=== PATIENT | female | born 1945 | race Caucasian/White ===

== ENCOUNTER → 2016-08-27 | Outpatient (CLI) | payer MEDICARE, OTHER ==
[~2016-08-27] MED LIST: CYCL5TAB PO; IBUP600T26 PO; Z.0.NO CURRENT MEDS
[2016-08-27 13:20] LABS: BASOPHIL % 0.5 % (0.0-2.0); EOSINOPHIL % 0.9 % (0.0-4.0); HEMATOCRIT 37.9 % (35.0-46.0); HEMO FLAGS DIFF FINAL; LYMPH % 25.5 % (9.0-44.0); LYMPHOCYTE # 1.2 TH/MM3 (1.0-4.8); MEAN CELL VOLUME 95.1 FL (80.0-100.0); MEAN CORPUSCULAR HEMOGLOBIN 32.9 PG (27.0-34.0); MEAN CORPUSCULAR HGB CONC 34.6 % (32.0-36.0); MONO % 7.8 % (0.0-8.0); NEUT % 65.3 % (16.0-70.0); PLATELET COUNT 206 TH/MM3 (150-450); RED BLOOD COUNT 3.98 MIL/MM3 (4.00-5.30); RED CELL DISTRIBUTION WIDTH 12.8 % (11.6-17.2); WHITE BLOOD COUNT 4.7 TH/MM3 (4.0-11.0)
[2016-08-27 13:52] LABS: ALKALINE PHOSPHATASE 40 U/L (45-117); ALT (GPT) 24 U/L (10-53); ANION GAP 7 MEQ/L (5-15); AST (GOT) 15 U/L (15-37); BLOOD UREA NITROGEN 12 MG/DL (7-18); CHLORIDE 107 MEQ/L (98-107); GLOMERULAR FILTRATION RATE 87 ML/MIN (>89); POTASSIUM 3.8 MEQ/L (3.5-5.1); SODIUM (NA) 141 MEQ/L (136-145); TOTAL BILIRUBIN ADULT 0.5 MG/DL (0.2-1.0)
[2016-08-27 16:43] LABS: BLOOD, URINE MOD (NEG); GLUCOSE,URINE NEG (NEG); KETONE, URINE NEG (NEG); NITRITE,URINE NEG (NEG); SQUAMOUS EPITHELIAL CELL URINE 2 /hpf (0-5); URINE COLOR YELLOW (YELLW/STRAW)
== END ==
LOC: PLAB 11:12
PROVIDERS: ATTEND Family Medicine
DX: R31.29 Other microscopic hematuria (principal); C50.919 Malignant neoplasm of unspecified site of unspecified female breast; R53.83 Other fatigue
CPT/HCPCS: 36415; 80053; 81001; 84443; 85025

== ENCOUNTER 2017-05-19 15:52 | Emergency (ER) | payer MEDICARE, OTHER ==
[~2017-05-19] VITALS: Ht 172.7 cm; Wt 77.0 kg
[2017-05-19 16:01] VITALS: BP 158/72; PULSE 71; RESP 16; TEMP 97.2; O2SAT 98
[2017-05-19 16:20] VITALS: O2SAT 97
[2017-05-19] MEDS ORDERED: MECLIZINE HCL 25 MG TAB PO ONE (16:30)
[2017-05-19] MEDS ORDERED: SODIUM CHLOR 0.9% 1000 ML INJ 1,000 ML IV ONE (16:30)
[2017-05-19] MEDS ORDERED: SODIUM CHLORIDE 0.9% FLUSH 10 ML FLUSH IVF PRN (16:30)
[2017-05-19] MEDS ORDERED: LORazepam 2 MG/ML VIAL IV PUSH ONE (16:30)
--- NOTE | 2017-05-19 16:47 | PD ---
HPI Chief Complaint: Dizziness Time Seen by Provider: 16:10 Travel History International Travel<30 days: No Contact w/Intl Traveler<30days: No Traveled to known affect area: No History of Present Illness HPI Patient is a 72-year-old female who presents to emergency room for evaluation of dizziness. Patient reports that around 2:00PM this afternoon, she went to her friends home down the street and began to feel dizzy. Patient reports that she felt as if she was spinning around the room. Reports that she felt diaphoretic, nauseous and faint with her symptoms. Patient reports that she had to have her friend assist her back to her home she was unsteady on her feet. Patient reports that the dizziness is worse with exertion, reports that dizziness does improve when she is laying down. Patient denies any fall or trauma to the head or neck. Patient denies any chest pain or shortness of breath. Patient denies any abdominal pain. Patient reports that something similar this happen a few years ago, reports that she was on medication but reported that the symptoms lasted for a few days. Patient reports that she does not have any medical problems at this time, reports only history of breast cancer currently taking tamoxifen [facility] Past Medical History Cancer: Yes (history of breast cancer) Menopausal: Yes Past Surgical History Surgical History: No Previous Surgery Social History Alcohol Use: Yes (1-2/DAY) Tobacco Use: No Substance Use: No Allergies-Medications (Allergen,Severity, Reaction): Coded Allergies: No Known Allergies (Verified Adverse Reaction, Unknown, 05/19/17) Reported Meds & Prescriptions Reported Meds & Active Scripts Active Meclizine (Meclizine HCl) 25 Mg Tab 25 Mg PO TID PRN Reported Cranberry Urinary Comfort (Vitamins C & E) 1 Cap 1 Cap PO DAILY Tamoxifen (Tamoxifen Citrate) 10 Mg Tab 10 Mg PO DAILY Review of Systems General / Constitutional: No: Fever Eyes: No: Visual changes HENT: Positive: Lightheadedness, No: Headaches Cardiovascular: No: Chest Pain or Discomfort Respiratory: No: Shortness of Breath Gastrointestinal: Positive: Nausea, Vomiting, No: Abdominal Pain Genitourinary: No: Dysuria Musculoskeletal: No: Pain Skin: No Rash Neurologic: Positive: Weakness, Dizziness, Ataxia, No: Syncope, Focal Abnormalities, Coordination Problem, Headache, Slurred Speech, Seizures, Sensory Disturbance Psychiatric: No: Depression Endocrine: No: Polydipsia Hematologic/Lymphatic: No: Easy Bruising Physical Exam Narrative GENERAL: Moderate distress SKIN: Focused skin assessment warm/dry. HEAD: Atraumatic. Normocephalic. EYES: Pupils equal and round. No scleral icterus. No injection or drainage. Patient with horizontal nystagmus ENT: No nasal bleeding or discharge. Mucous membranes pink and moist. NECK: Trachea midline. No JVD. CARDIOVASCULAR: Regular rate and rhythm. No murmur appreciated. RESPIRATORY: No accessory muscle use. Clear to auscultation. Breath sounds equal bilaterally. GASTROINTESTINAL: Abdomen soft, non-tender, nondistended. Hepatic and splenic margins not palpable. MUSCULOSKELETAL: No obvious deformities. No clubbing. No cyanosis. No edema. NEUROLOGICAL: Awake and alert. No obvious cranial nerve deficits. Motor grossly within normal limits. Normal speech. CN 2-12 grossly intact with no neurological deficits PSYCHIATRIC: Appropriate mood and affect; insight and judgment normal. Data Data Last Documented VS Vital Signs Date Time Temp Pulse Resp B/P (MAP) Pulse Ox O2 Delivery O2 Flow Rate FiO2 05/19/17 19:00 76 16 97 Room Air 05/19/17 19:00 104/64 (77) 05/19/17 16:01 97.2 Orders Orders Electrocardiogram (05/19/17 16:24) Prothrombin Time / Inr (Pt) (05/19/17 16:24) Act Partial Throm Time (Ptt) (05/19/17 16:24) Complete Blood Count With Diff (05/19/17 16:24) Basic Metabolic Panel (Bmp) (05/19/17 16:24) Creatine Kinase (Cpk) (05/19/17 16:24) Troponin I (05/19/17 16:24) Urinalysis - C+S If Indicated (05/19/17 16:24) Ct Brain W/O Iv Contrast(Rout) (05/19/17 16:24) Ecg Monitoring (05/19/17 16:24) Iv Access Insert/Monitor (05/19/17 16:24) Oximetry (05/19/17 16:24) Blood Glucose (05/19/17 16:24) Sodium Chloride 0.9% Flush (Ns Flush) (05/19/17 16:30) Sodium Chlor 0.9% 1000 Ml Inj (Ns 1000 M (05/19/17 16:30) Meclizine (Antivert) (05/19/17 16:30) Lorazepam Inj (Ativan Inj) (05/19/17 16:30) Mri Brain W/O Contrast (05/19/17 ) Labs Laboratory Tests Test 05/19/17 17:00 White Blood Count 4.2 TH/MM3 Red Blood Count 4.08 MIL/MM3 Hemoglobin 12.7 GM/DL Hematocrit 38.9 % Mean Corpuscular Volume 95.5 FL Mean Corpuscular Hemoglobin 31.2 PG Mean Corpuscular Hemoglobin Concent 32.7 % Red Cell Distribution Width 12.4 % Platelet Count 183 TH/MM3 Mean Platelet Volume 7.8 FL Neutrophils (%) (Auto) 75.6 % Lymphocytes (%) (Auto) 16.3 % Monocytes (%) (Auto) 7.6 % Eosinophils (%) (Auto) 0.1 % Basophils (%) (Auto) 0.4 % Neutrophils # (Auto) 3.2 TH/MM3 Lymphocytes # (Auto) 0.7 TH/MM3 Monocytes # (Auto) 0.3 TH/MM3 Eosinophils # (Auto) 0.0 TH/MM3 Basophils # (Auto) 0.0 TH/MM3 CBC Comment DIFF FINAL Differential Comment Prothrombin Time 11.4 SEC Prothromb Time International Ratio 1.0 RATIO Activated Partial Thromboplast Time 26.5 SEC Urine Collection Type . Urine Color STRAW Urine Turbidity CLOUDY Urine pH 7.5 Urine Specific [place] 1.015 Urine Protein NEG mg/dL Urine Glucose (UA) NEG mg/dL Urine Ketones 15 mg/dL Urine Occult Blood SMALL Urine Nitrite NEG Urine Bilirubin NEG Urine Leukocyte Esterase NEG Urine WBC 0-2 /hpf Urine Squamous Epithelial Cells 0-5 /hpf Urine Renal Epithelial Cells 0-5 /hpf Urine Amorphous Sediment MOD Microscopic Urinalysis Comment CATH-CULT NOT IND Blood Urea Nitrogen 16 MG/DL Creatinine 0.62 MG/DL Random Glucose 89 MG/DL Calcium Level 8.8 MG/DL Sodium Level 139 MEQ/L Potassium Level 3.7 MEQ/L Chloride Level 103 MEQ/L Carbon Dioxide Level 26.0 MEQ/L Anion Gap 10 MEQ/L Estimat Glomerular Filtration Rate 94 ML/MIN Total Creatine Kinase 50 U/L Troponin I LESS THAN 0.02 NG/ML MDM Medical Decision Making Medical Screen Exam Complete: Yes Emergency Medical Condition: Yes Medical Record Reviewed: Yes Interpretation(s) EKG at 1654: NSR at 74bpm, qt/qtc: 403/431, no acute st or t wave changes Vital Signs Date Time Temp Pulse Resp B/P (MAP) Pulse Ox O2 Delivery O2 Flow Rate FiO2 05/19/17 16:01 97.2 71 16 158/72 (100) 98 Differential Diagnosis Vertigo, CVA, VBI, electrolyte abnormality Narrative Course During the course of the patients emergency department visit, the patients history, examination, and differential diagnosis were reviewed with the patient. The patient was placed on a traffic monitor specialist with oximetry and frequent blood pressure monitoring. The patient had an IV access obtained and blood work sent for analysis. The patient was initially provided antivert, ivf and ativan for symptomatic relief The patients laboratory studies were reviewed and remarkable for: Laboratory Tests Test 05/19/17 17:00 White Blood Count 4.2 TH/MM3 (4.0-11.0) Red Blood Count 4.08 MIL/MM3 (4.00-5.30) Hemoglobin 12.7 GM/DL (11.6-15.3) Hematocrit 38.9 % (35.0-46.0) Mean Corpuscular Volume 95.5 FL (80.0-100.0) Mean Corpuscular Hemoglobin 31.2 PG (27.0-34.0) Mean Corpuscular Hemoglobin Concent 32.7 % (32.0-36.0) Red Cell Distribution Width 12.4 % (11.6-17.2) Platelet Count 183 TH/MM3 (150-450) Mean Platelet Volume 7.8 FL (7.0-11.0) Neutrophils (%) (Auto) 75.6 % (16.0-70.0) Lymphocytes (%) (Auto) 16.3 % (9.0-44.0) Monocytes (%) (Auto) 7.6 % (0.0-8.0) Eosinophils (%) (Auto) 0.1 % (0.0-4.0) Basophils (%) (Auto) 0.4 % (0.0-2.0) Neutrophils # (Auto) 3.2 TH/MM3 (1.8-7.7) Lymphocytes # (Auto) 0.7 TH/MM3 (1.0-4.8) Monocytes # (Auto) 0.3 TH/MM3 (0-0.9) Eosinophils # (Auto) 0.0 TH/MM3 (0-0.4) Basophils # (Auto) 0.0 TH/MM3 (0-0.2) CBC Comment DIFF FINAL Differential Comment Prothrombin Time 11.4 SEC (9.8-11.6) Prothromb Time International Ratio 1.0 RATIO Activated Partial Thromboplast Time 26.5 SEC (24.3-30.1) Urine Collection Type . Urine Color STRAW (YELLW/STRAW) Urine Turbidity CLOUDY (CLEAR) Urine pH 7.5 (5.0-8.5) Urine Specific [place] 1.015 (1.002-1.035) Urine Protein NEG mg/dL (NEG-TRACE) Urine Glucose (UA) NEG mg/dL (NEG) Urine Ketones 15 mg/dL (NEG) Urine Occult Blood SMALL (NEG) Urine Nitrite NEG (NEG) Urine Bilirubin NEG (NEG) Urine Leukocyte Esterase NEG (NEG) Urine WBC 0-2 /hpf (0-5) Urine Squamous Epithelial Cells 0-5 /hpf (0-5) Urine Renal Epithelial Cells 0-5 /hpf (NONE) Urine Amorphous Sediment MOD Microscopic Urinalysis Comment CATH-CULT NOT IND Blood Urea Nitrogen 16 MG/DL (7-18) Creatinine 0.62 MG/DL (0.50-1.00) Random Glucose 89 MG/DL (74-106) Calcium Level 8.8 MG/DL (8.5-10.1) Sodium Level 139 MEQ/L (136-145) Potassium Level 3.7 MEQ/L (3.5-5.1) Chloride Level 103 MEQ/L (98-107) Carbon Dioxide Level 26.0 MEQ/L (21.0-32.0) Anion Gap 10 MEQ/L (5-15) Estimat Glomerular Filtration Rate 94 ML/MIN (>89) Total Creatine Kinase 50 U/L (26-192) Troponin I LESS THAN 0.02 NG/ML Radiology studies were reviewed and remarkable for: Last Impressions Head CT 05/19/17 [id number] Signed Impressions: Service Date/Time: Friday, May 19, 2017 16:33 - CONCLUSION: Negative, MRI may be helpful the patient remains symptomatic. Stuart Pena MD FACR Patient reevaluated, patient reports that she is feeling much better at this time with resolution of symptoms. MRI: Last Impressions Head CT 05/19/17 1624 Signed Impressions: Service Date/Time: Friday, May 19, 2017 16:33 - CONCLUSION: Negative, MRI may be helpful the patient remains symptomatic. Stuart Pena MD FACR Brain MRI 05/19/17 0000 Signed Impressions: Service Date/Time: Friday, May 19, 2017 19:44 - CONCLUSION: 1. No acute abnormality is seen. No focal masses seen. 2. Minimal punctate nonspecific areas of demyelination seen in the cerebral white matter likely from small vessel ischemic change. Todd Hughes MD Patient reevaluated, patient with complete resolution of symptoms at this time. Patient ambulating emergency with normal gait. Reviewed all labs and all studies with patient in detail, patient will follow-up with neurology as well as her primary care doctor as outpatient, she'll return to emergency room as needed. Critical Care Narrative Aggregate critical care time was 30 minutes. Time to perform other separately billable procedures was not included in the critical care time. My time did not include minutes spent treating any other patients simultaneously or on activities that did not directly contribute to the patient's treatment. The services I provided to this patient were to treat and/or prevent clinically significant deterioration that could result in: , decompensation, deterioration I provided critical care services requiring my management, as noted below: Chart data review, documentation time, medication orders and management, vital sign assessments/reviewing monitor data, ordering and reviewing lab tests, ordering and interpreting/reviewing x-rays and diagnostic studies, care of the patient and discussion of the patient with the admitting physicians. Diagnosis Primary Impression: Dizziness Additional Impression: Vertigo Referrals: Wil Campbell MD Patient Instructions: General Instructions Additional Instructions: Please provide patient with a copy of their lab work and studies at discharge* * Please follow up with your primary care doctor in 2-3 days Return to the ER if symptoms worsen or progress Return to the ER as needed Please follow-up with neurologist in 2-3 days Med/Other Pt SpecificInfo: Prescription(s) given Scripts Meclizine (Meclizine) 25 Mg Tab 25 MG PO TID Y for VERTIGO, #30 TAB 0 Refills Prov: Billie Barreto DO 05/19/17 Disposition: 01 DISCHARGE HOME Condition: Stable Billie Barreto DO May 19, 2017 16:47
[2017-05-19 17:15] VITALS: BP 132/81; PULSE 80; RESP 16; O2SAT 98
[2017-05-19 17:16] LABS: AUTOMATED NEUTROPHIL # 3.2 TH/MM3 (1.8-7.7); BASOPHIL % 0.4 % (0.0-2.0); EOSINOPHIL % 0.1 % (0.0-4.0); HEMATOCRIT 38.9 % (35.0-46.0); HEMO FLAGS DIFF FINAL; LYMPH % 16.3 % (9.0-44.0); LYMPHOCYTE # 0.7 TH/MM3 (1.0-4.8); MEAN CELL VOLUME 95.5 FL (80.0-100.0); MEAN CORPUSCULAR HEMOGLOBIN 31.2 PG (27.0-34.0); MEAN CORPUSCULAR HGB CONC 32.7 % (32.0-36.0); MONO % 7.6 % (0.0-8.0); NEUT % 75.6 % (16.0-70.0); PLATELET COUNT 183 TH/MM3 (150-450); RED BLOOD COUNT 4.08 MIL/MM3 (4.00-5.30); RED CELL DISTRIBUTION WIDTH 12.4 % (11.6-17.2); WHITE BLOOD COUNT 4.2 TH/MM3 (4.0-11.0)
--- NOTE | 2017-05-19 17:24 | RADRPT ---
EXAM DATE/TIME: 05/19/2017 16:33 [facility] COMPARISON: No previous studies available for comparison. INDICATIONS : Dizziness. RADIATION DOSE: 59.80 CTDIvol (mGy) MEDICAL HISTORY : Carcinoma, breast. SURGICAL HISTORY : None. ENCOUNTER: Initial ACUITY: 1 day PAIN SCALE: 0/10 LOCATION: cranial TECHNIQUE: Multiple contiguous axial images were obtained of the head. Using automated exposure control and adj ustment of the mA and/or kV according to patient size, radiation dose was kept as low as reasonably a chievable to obtain optimal diagnostic quality images. DICOM format image data is available electro nically for review and comparison. FINDINGS: CEREBRUM: The ventricles are normal for age. No evidence of midline shift, mass lesion, hemorrhage or acute in farction. No extra-axial fluid collections are seen. POSTERIOR FOSSA: The cerebellum and brainstem are intact. The 4th ventricle is midline. The cerebellopontine angle i s unremarkable. EXTRACRANIAL: The visualized portion of the orbits is intact. SKULL: The calvaria is intact. No evidence of skull fracture. CONCLUSION: Negative, MRI may be helpful the patient remains symptomatic. Stuart Pena MD FACR on May 19, 2017 at 17:22 Board Certified Radiologist. This report was verified electronically.
[2017-05-19 17:31] LABS: CHLORIDE 103 MEQ/L (98-107); POTASSIUM 3.7 MEQ/L (3.5-5.1); SODIUM (NA) 139 MEQ/L (136-145)
[2017-05-19 17:34] LABS: ANION GAP 10 MEQ/L (5-15)
[2017-05-19 17:35] LABS: APTT (PATIENT) 26.5 SEC (24.3-30.1); BLOOD UREA NITROGEN 16 MG/DL (7-18); PROTHROMBIN TIME - PATIENT 11.4 SEC (9.8-11.6)
[2017-05-19 17:38] LABS: GLOMERULAR FILTRATION RATE 94 ML/MIN (>89)
[2017-05-19 17:41] LABS: BLOOD, URINE SMALL (NEG); GLUCOSE,URINE NEG (NEG); KETONE, URINE 15 mg/dL (NEG); NITRITE,URINE NEG (NEG); PH, URINE 7.5 (5.0-8.5)
[2017-05-19] MEDS ORDERED: CRANCAP2 PO (18:08)
[2017-05-19] MEDS ORDERED: TAMO10TA6 PO (18:08)
[2017-05-19 18:09] LABS: CREATINE KINASE 50 U/L (26-192)
[2017-05-19 18:23] LABS: URINE COLOR STRAW (YELLW/STRAW)
[2017-05-19 18:25] LABS: COMMENT (UR) CATH-CULT NOT IND; CULTURE IF INDICATED CATH CULTURE NOT IND; RENAL EPITHELIAL CELLS 0-5 /hpf; SQUAMOUS EPITHELIAL CELL URINE 0-5 /hpf (0-5); WBC, URINE 0-2 /hpf (0-5)
[2017-05-19 18:31] VITALS: BP 119/72; PULSE 80; RESP 16; O2SAT 99
[2017-05-19 19:00] VITALS: BP 104/64; PULSE 76; RESP 16; O2SAT 97
--- NOTE | 2017-05-19 20:57 | RADRPT ---
EXAM DATE/TIME: 05/19/2017 19:44 [facility] COMPARISON: No previous studies available for comparison. INDICATIONS : Dizziness. CVA MEDICAL HISTORY : Carcinoma, breast. Hypoglycemic SURGICAL HISTORY : Tonsillectomy. Breast Augmentation ENCOUNTER: Initial ACUITY: 1 day PAIN SCORE: 0/10 LOCATION: cranial TECHNIQUE: Multiplanar, multisequence MRI of the brain was performed without contrast. FINDINGS: CEREBRUM: The ventricles are normal for age. No evidence of midline shift, mass lesion, hemorrhage or acute in farction. No extraaxial fluid collections are seen. The pituitary gland and suprasellar cistern are normal in configuration. WHITE MATTER: There is scattered punctate areas of increased signal seen within the cerebral white matter. POSTERIOR FOSSA: The cerebellum and brainstem are intact. The 4th ventricle is midline. The cerebellopontine angle is unremarkable. The cerebellar tonsils are normal in position. DIFFUSION IMAGING: No focal areas of restricted diffusion are seen. No evidence of acute infarction. EXTRACRANIAL: The visualized portions of the orbits and paranasal sinuses are unremarkable. CONCLUSION: 1. No acute abnormality is seen. No focal masses seen. 2. Minimal punctate nonspecific areas of demyelination seen in the cerebral white matter likely from small vessel ischemic change. Todd Hughes MD on May 19, 2017 at 20:54 Board Certified Radiologist. This report was verified electronically.
[2017-05-19] MEDS ORDERED: MECL-62 PO (21:25)
[2017-05-19 21:47] VITALS: BP 115/73
--- NOTE | 2017-05-20 16:06 | EKG ---
Date Performed: 05/19/2017 Time Performed: 16:54:56 PTAGE: 72 years EKG: Sinus rhythm SEPTAL MYOCARDIAL INFARCTION ABNORMAL ECG NO PREVIOUS TRACING DOCTOR: Laurel Cartwright Interpretating Date/Time 05/20/2017 16:04:12
== END 2017-05-19 22:01 | disposition home or self-care (01) ==
LOC: PHED 15:52
DX: R42 Dizziness and giddiness (principal); R11.0 Nausea; R61 Generalized hyperhidrosis; Z85.3 Personal history of malignant neoplasm of breast
CPT/HCPCS: 70450; 70551; 80048; 81001; 82550; 84484; 85025; 85610; 85730; 93005; 96361; 96374; 99285; J2060; J7030